=== PATIENT | female | born 1980 | race Caucasian/White ===

== ENCOUNTER 2021-06-15 11:12 | Day surgery (SDC) | payer OTHER, SELFPAY ==
[2021-06-01 10:52] VITALS: BMI 18.6
--- NOTE | 2021-06-14 08:20 | WPDANESEPPF ---
Anes - Initial Pre Proc Eval Procedure: Operation Date: 06/15/21 13:00 Proposed Procedures p Bilateral Breast Implant Exchange - Dick Johnson MD Date/Time: 06/14/21 08:20 Surgeon: Dick Johnson MD Pre Op Diagnosis: History of Breast Augmentation Patient Data Age: 41 Gender: F Height: 1.68 m Weight: 52.163 kg Allergies Allergy/AdvReac Type Severity Reaction Status Date / Time No Known Allergies Allergy Verified 06/15/21 11:39 Home Medications Medication Instructions Recorded Confirmed Type docusate sodium 100 mg capsule 100 mg PO DAILY #14 cap 06/06/21 06/15/21 Rx ondansetron HCl 4 mg tablet 4 mg PO Q8H #21 tablet 06/06/21 06/15/21 Rx carisoprodol 350 mg tablet 350 mg PO TID PRN #21 tablet 06/07/21 06/15/21 Rx oxycodone-acetaminophen 5 mg-325 1 tablet PO Q6H PRN #15 tablet 06/07/21 06/15/21 Rx mg tablet Patient hx anesthesia problems: none Family hx anesthesia problems: none Results Review: All pre-operative results and documents have been reviewed as part of the pre-operative evaluation. [facility] Surgical History Surgical History Hx of breast augmentation Social History Social History Smoking status: Unknown if ever smoked Alcohol intake: current Drinks per week: 7 Alcohol use details: 1 glass per day Substance use: never Living arrangements: with family Spiritual care concerns: No Anes - Eval Final PreProcedure Day of Procedure 06/14/21 08:20 Patient weight: thin Heart: regular rate and rhythm Lungs: clear to auscultation and normal air movement Airway: Mallampati scale class II Neurological: alert and oriented Last oral intake: >/= 8 hours ASA classification: II Emergent: no Anesthetic plan: proceed Anesthesia type and monitoring: general LMA and standard monitoring Results Review: All pre-operative results and documents have been reviewed as part of the pre-operative evaluation. Informed Consent: The patient's anesthetic plan and its attendant risks and benefits were discussed with the patient/family/POA. Questions were solicited and answers provided to the satisfaction of the patient/family/POA.
[2021-06-15] VITALS (9 sets, daily range): BP systolic 113–122; BP diastolic 56–85; PULSE 67–100; RESP 13–18; TEMP 36.4–36.9; O2SAT 100; BMI 18.3
[2021-06-15] MEDS: LACTATED RINGERS 1,000 ML 30 ML IV CONT ×2 (11:59→14:30)
--- NOTE | 2021-06-15 12:34 | WPDHPUPDATE1 ---
History and Physical Update Update Date/Time: 06/15/21 12:34 History and Physical has been reviewed, including an updated exam of the patient. There are NO changes in the patient's condition. We spent extensive time discussing her goals. Implant selection. This was a lengthy and open-ended conversation making sure answered all of her questions. She understands this could lead to skin laxity and she must be willing to accept this to proceed. Risks, benefits, and alternatives have been discussed and questions answered. Patient agrees to proceed with procedure.
--- NOTE | 2021-06-15 12:34 | W.PM.PROC2 ---
Procedure Note - Detailed Date of Procedure 06/15/21 Pre-op Diagnosis History of Breast Augmentation Post-op Diagnosis same Procedure Performed Bilateral augmentation mammoplasty Surgeon Dick Johnson MD Anesthesia general Findings Previous Implants: Right - 68MP-360 Left - 68MP-330 New Implants: Right - 68LP-275 SN [id number] filled to 290 Left - 68LP-250 SN [id number] filled to 265 Description of Procedure Patient was marked in the preoperative holding area with her and her 's verification. She was taken to the operating room placed supine on the operating room table. Anesthesia was provided by anesthesiology and prepped and draped in the standard sterile fashion. Surgical time-out was taken. 1% lidocaine and 0.25% Marcaine with epinephrine was used anesthetize as a field block. A 15 blade used to make an incision excising the previous scar. Throughout the procedure we did have Tegaderm nipple Cool in place. The continued down to capsule was identified size pocket. Implants were removed. I copiously irrigated with more than 3 L of saline solution on TUR tubing. Verified strict hemostasis. Bilateral lateral aspect of her breast we did popcorn capsulorrhaphy on the left as she had some lateral migration she stated previously. Copiously irrigated with triple antibiotic Betadine solution. On the back table prepared the implants removing all the air. They were placed into the pocket I filled using a fill kit to the volumes as above. She was closed using 2-0 Vicryl followed by 3-0 Monocryl in a running subcuticular 4-0 Monocryl followed by tissue glue. She was awoke and taken to the PACU without difficulty. All instruments and sponge counts were correct the end of the case Estimated Blood Loss 20 Drains No Packing No Pathology none sent Complications No immediate complications Condition stable Disposition PACU
[2021-06-15] MEDS: ceFAZolin SODIUM 2 GM/20 ML SW SYRINGE IV PUSH (12:47)
[2021-06-15] MEDS: LIDO 1%/EPINEPHRINE 1:100,000 20 ML VIAL 30 ML INFILTRATE (13:09)
[2021-06-15] MEDS: BUPIVACAINE HCL 0.25% 50 ML VIAL INFILTRATE (13:11)
[2021-06-15] MEDS: fentaNYL CITRATE INJ (*CRX) 100 MCG/2 ML VIAL 25 MCG IV PUSH ×2 (14:36→14:43)
[2021-06-15] MEDS: oxyCODONE HCL (*CRX) 5 MG TAB IR PO (15:12)
--- NOTE | 2021-06-15 15:21 | WPDANESPN ---
Anes - Prog Note Post-Op Date/Time: 06/15/21 15:21 Cardiovascular status: normal Respiratory status: normal Airway patency: baseline Mental status: baseline Post-Op hydration status: normal Vital Signs: Last Vital Signs Temp 36.4 C L 06/15/21 14:08 Pulse 81 06/15/21 14:55 Resp 16 06/15/21 14:55 BP 113/75 06/15/21 14:55 Pulse Ox 100 06/15/21 14:55 Pain Score (VAS): 1 Post-procedural complaints: none Patient Feedback: Patient satisfied with anesthetic care. Other Findings: Patient vital signs back to baseline. Patient denies nausea and vomiting. Patient's pain under control. Patient OK for discharge.
== END 2021-06-15 15:35 | disposition home or self-care (01) ==
PROVIDERS: Visit Provider Surgery Plastic and Reconstructive Surgery
PROC: (CPT 19342; principal; 2021-06-15 13:00)
DX: Z41.1 Encounter for cosmetic surgery (principal)
CPT/HCPCS: 19325